=== PATIENT | male | born 1955 | race Hispanic/Latino ===

== ENCOUNTER 2022-08-05 06:31 | Day surgery (SDC) | payer BC, MEDICARE ==
[2022-08-05] MEDS ORDERED: fentaNYL 100 MCG/2 ML INJ ONE (07:31)
[2022-08-05] MEDS ORDERED: MIDAZOLAM 2 MG/2 ML INJ ONE ×2 (07:31)
[2022-08-05] MEDS ORDERED: propofoL 200 MG/20 ML VIAL IV ONE (07:32)
[2022-08-05] MEDS ORDERED: KETAMINE/STERILE WATER 50 MG/ML SYRINGE ONE (07:32)
[2022-08-05] MEDS ORDERED: ePHEDrine SULFATE 50 MG/1 ML INJ ONE (07:34)
--- NOTE | 2022-08-05 07:57 | Anesthesia Day of Surgery ---
Anesthesia Day of Surgery - Day of Surgery Patient Examined: Yes Patient H&P Reviewed: Yes Patient is NPO: Yes
[2022-08-05 07:58] LABS: BUN/Creatinine Ratio 12; Blood Urea Nitrogen 11 mg/dL (9-20); Calcium 9.5 mg/dL (8.4-10.2); Hemolysis Index 9
--- NOTE | 2022-08-05 07:59 | Anesthesia Consultation ---
Anesthesia Consult and Med Hx Date of service: 08/05/22 - Airway Anesthetic Teeth Evaluation: Good ROM Head & Neck: Adequate Mental/Hyoid Distance: Adequate Mallampati Class: Class II Intubation Access Assessment: Good - Pulmonary Exam CTA: Yes - Cardiac Exam Anesthetic Concerns: Irregular Irregular - Pre-Operative Health Status ASA Pre-Surgery Classification: ASA3 Proposed Anesthetic Plan: MAC - Cardiovascular System Hx Hypertension: Yes - Central Nervous System Hx Psychiatric Problems: No
[2022-08-05] MEDS ORDERED: SODIUM CHLORIDE 0.9% 1000 ML 1,000 ML IV SCH (08:00)
[2022-08-05 08:05] LABS: INR 1.03 (0.87-1.13); Partial Thromboplastin Time 34.3 Sec. (24.2-36.6)
[2022-08-05 08:09] LABS: Basophils # (Auto) 0.1 K/mm3 (0.0-0.1); Basophils % (Auto) 0.6 % (0.0-1.8); Eosinophils # (Auto) 0.1 K/mm3 (0.0-0.4); Hematocrit 41.1 % (35.5-45.6); Hemoglobin 14.2 gm/dl (11.8-15.2); Lymphocytes # (Auto) 1.8 K/mm3 (1.2-5.4); Lymphocytes % (Auto) 21.4 % (13.4-35.0); Mean Corpuscular HGB Conc 35 % (32-34); Mean Corpuscular Volume 89 fl (84-94); Monocytes # (Auto) 0.9 K/mm3 (0.0-0.8); Monocytes % (Auto) 10.6 % (0.0-7.3); Platelet Count 299 K/mm3 (140-440); Red Blood Count 4.63 M/mm3 (3.65-5.03); Red Cell Distribution Width 13.8 % (13.2-15.2)
[2022-08-05] MEDS ORDERED: ATROPINE 0.1% (1 MG/10 ML) CARDIAC SYRINGE ONE (08:40)
--- NOTE | 2022-08-05 09:16 | Cardiac Catherization Report ---
DATE OF PROCEDURE: 08/05/2022 [facility] REFERRING PHYSICIAN: Kosta Arroyo MD This is an elective electrical cardioversion. INDICATIONS FOR PROCEDURE: The patient is a pleasant 66-year-old gentleman with atrial fibrillation. He is an avid runner. He has been compliant with systemic anticoagulation for greater than 2 months. He is referred for elective cardioversion. He was brought to the cardioversion suite in a postabsorptive state. Anesthesia was at bedside. Again confirmed that he has not missed any dose of anticoagulation for greater than 2 months. Once adequate sedation is achieved, he received one shock of 200 biphasic joules, converted to sinus rhythm, confirmed by EKG. No complications. No dysrhythmias. Anesthesia recovered patient. The patient tolerated the procedure well. CONCLUSIONS: Successful elective electrical cardioversion of atrial fibrillation with resumption of sinus rhythm without complication. The patient will follow up with Dr. Arroyo in the office. Results of procedure explained to the patient and at bedside. Continue systemic anticoagulation. TID: [id number] RECEIPT: [id number] LOU/RODNEY
--- NOTE | 2022-08-05 09:21 | Short Stay Summary ---
Short Stay Documentation Date of service: 08/05/22 Narrative H&P: Elective Cardioversion See HPI - History H&P: obtained from office - Allergies and Medications Current Medications: Allergies No Known Allergies Allergy (Verified 08/05/22 07:24) Active Medications Sodium Chloride (Nacl 0.9% 1000 Ml) 1,000 mls @ 42 mls/hr IV DIRECT LUCA - Physical exam General appearance: no acute distress HEENT: PERRLA - Brief post op/procedure progress note Date of procedure: 08/05/22 Pre-op diagnosis: Afib Post-op diagnosis: other (SInus Rhythm) Procedure: Elective Cardioversion Anesthesia: MAC Estimated blood loss: none - Disposition Condition at discharge: Stable Disposition: 01 HOME / SELF CARE / HOMELESS - Discharge Diagnoses (1) Encounter for cardioversion procedure Status: Acute (2) Atrial flutter with rapid ventricular response Status: Resolved Short Stay Discharge Plan Activity: no restrictions Diet: low fat, low cholesterol, low salt Wound: per your surgeon's advice Follow up with: WARD HOOVER MD [Primary Care Provider] - 7 Days DYLON JOHN MD [Staff Physician] - 7 Days (Patient should follow-up with Dr. John with [facility] on 08/17/2022 at 10 AM in our [place] location. [phone])
[2022-08-05 10:31] VITALS: BP 115/78
--- NOTE | 2022-08-05 10:34 | Electrocardiograph Report ---
Test Date: 2022-08-05 Test Time: 08:44:27 Pat Name: LAKESHIA GARDNER Department: Room: Gender: M Global President: ASHA : 1955 Requested By: AKASH RED Order Number: [id number] Reading MD: Akash Red Measurements Intervals [place] Rate: 54 P: 53 CT: 179 QRS: -10 QRSD: 96 T: 133 QT: 422 QTc: 400 Interpretive Statements Sinus bradycardia Ventricular premature complex Nonspecific repol abnormality, diffuse leads No previous ECG available for comparison Electronically Signed On 08-05-2022 10:34:15 EDT by Akash Red
--- NOTE | 2022-08-05 16:16 | Post Anesthesia Evaluation ---
- Post Anesthesia Evaluation Patient Participated: Yes Airway Patent: Yes Stable Respiratory Function: Yes Nausea/Vomiting: No Temp > 96.8F: Yes Pain Manageable: Yes Adequeate Hydration: Yes Anesthesia Complications: No Block Receding Appropriately: Not Applicable Patient on Ventilator: No
== END 2022-08-05 10:45 | disposition home or self-care (01) ==
LOC: CATHLABREC 06:31
PROVIDERS: ATTEND Internal Medicine
DX: I48.91 Unspecified atrial fibrillation (principal); I48.92 Unspecified atrial flutter; M10.9 Gout, unspecified; I10 Essential (primary) hypertension; Z87.442 Personal history of urinary calculi; Z79.899 Other long term (current) drug therapy; Z98.890 Other specified postprocedural states
CPT/HCPCS: 36415; 80048; 85025; 85610; 85730; 92960; 93005; J2250; J2704; J3490; J7030; J0461; J3010